=== PATIENT | female | born 1960 | race Caucasian/White ===

== ENCOUNTER → 2016-08-06 | Outpatient (CLI) | payer OTHER ==
--- NOTE | 2016-08-06 15:11 | DI ---
US PELVIC-TRANSVAGINAL, US PELVIC COMPLETE (NON OB),08/06/2016 9:32 AM: Clinical History: Bleeding. Previous Exam: None at this facility. Findings: Multiple grayscale and color Doppler sonographic images are obtained through the pelvis both transabd ominally and endovaginally, and demonstrate a normal-appearing uterus measuring 7.0 x 3.7 x 4.5 cm wi th an endometrial stripe measuring 8 mm. Several nabothian cysts were noted. The right ovary measures 2.0 x 2.0 x 2.5 cm with normal Doppler flow. The left kidney also demonstrates normal flow and measures 2.5 x 2.1 x 3.1 cm. There is no evidence of torsion. There is a trace amount of fluid within the deep pelvis. Impression: Trace amount of fluid within the pelvis otherwise unremarkable.
== END ==
LOC: US 09:29
PROVIDERS: ATTEND Obstetrics & Gynecology
DX: N95.0 Postmenopausal bleeding (principal); Z87.898 Personal history of other specified conditions; F17.210 Nicotine dependence, cigarettes, uncomplicated
CPT/HCPCS: 76830; 76856

== ENCOUNTER → 2016-08-25 | Outpatient (CLI) | payer OTHER ==
[2016-08-25 08:04] LABS: BLOOD UREA NITROGEN 23 mg/dL (7-22); BUN/CREATININE RATIO 32.85 (6-20); CALCIUM 9.1 mg/dL (8.7-10.7); EST GLOMERULAR FILTRATION > 60 (>60 ml/min/1.73m(2))
== END ==
LOC: LAB 07:32
PROVIDERS: ATTEND Obstetrics & Gynecology
DX: I10 Essential (primary) hypertension (principal)
CPT/HCPCS: 36415; 80048

== ENCOUNTER 2016-08-30 06:58 | Day surgery (SDC) | payer OTHER ==
[~2016-08-30 06:58] MED LIST: LIDOCAINE W/ SODIUM BICARB 0.5 ML SYR ONE; Lactated Ringers 1,000 ML PRIMARY IV ONE
[2016-08-30] MEDS ORDERED: MIDAZOLAM 5 MG/1 ML ONE (07:17)
[2016-08-30] MEDS ORDERED: fentaNYL Inj 250 MCG/5 ML VIAL ONE (07:18)
[2016-08-30] MEDS ORDERED: LIDOCAINE MPF 2% - 5 ML (20 MG/1 ML) ONE (07:18)
[2016-08-30 07:36] VITALS: RESP 14; TEMP 98.5
[2016-08-30 07:43] LABS: URINE SPECIFIC GRAVITY - MAN 1.015
[2016-08-30 07:44] LABS: BILIRUBIN,URINE NEGATIVE (NEG); CLARITY,URINE CLEAR (CLEAR); COLOR,URINE YELLOW; GLUCOSE, URINE (UA) NEGATIVE (NEG); NITRATE,URINE NEGATIVE (NEG); OCCULT BLOOD,URINE Trace-intact (NEG); PH,URINE 5.5 (5.0-8.5); PROTEIN,URINE NEGATIVE (NEG); UROBILINOGEN,URINE 0.2 EU/dL (0.2)
[2016-08-30 07:46] LABS: RBC,URINE 0 /hpf; URINE SAMPLE TYPE CLEAN CATCH URINE; WBC,URINE 0
[2016-08-30 07:47] LABS: BACTERIA,URINE FEW; SQUAMOUS EPITHELIAL CELL,UR FEW
[2016-08-30] MEDS ORDERED: ONDANSETRON 4 MG/2 ML VIAL ONE (08:20)
[2016-08-30] MEDS ORDERED: DEXAMETHASONE SOD PHOSPHATE 4 MG/1 ML VIAL ONE (08:20)
[2016-08-30] MEDS ORDERED: KETOROLAC 30 MG/1 ML VIAL ONE (08:20)
[2016-08-30] MEDS ORDERED: KETAMINE 100 MG/1 ML - 5 ML ONE (08:24)
[2016-08-30] MEDS ORDERED: Lactated Ringers 1,000 ML PRIMARY IV ONE (08:31)
--- NOTE | 2016-08-30 09:11 | OB.OP.NOTE ---
Operative Report Surgeon: Wali Anesthesia Type: General (With LMA) Anesthesia Provider: Samuel Romero CRNA Surgery Date: 08/30/16 Preoperative Diagnosis: Postmenopausal bleeding. Endometrial stripe 8 mm. 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 Dilation and curettage. Hysteroscopy with minimal endometrial curettings obtained secondary to atrophy of endometrial lining Estimated Blood Loss (mL): 5 Fluids: 1500 mL of IV fluids. hysteroscopic fluid-750 mL. 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 No evidence of endometrial polyps. Ostia could not be visualized well secondary to atrophy of endometrial lining Minimal tissue with curettage. I did not dilate the cervix above a Mikhail dilator 26 secondary to the cervical stenosis and the difficulty in dilating the cervix. The curet used was the small serrated curet since the other curettes could not pass through the cervix secondary to the cervical stenosis Again, no evidence of uterine perforation Indications for the Procedure: The patient is a 55-year-old G0. The patient has postmenopausal bleeding times one. Endometrial stripe was 8 mm on pelvic ultrasound. Ovaries were normal. Otherwise uterus was normal appearing. Endometrial biopsy in clinic versus hysteroscopy D&C and operating room was discussed with patient. Secondary to patient's history of postmenopausal and cold knife cone 2, patient denies decided upon hysteroscopy D&C in the operating room. Cytotec 100 g 1 per vagina for 5 evenings prior to surgery will be prescribed. Patient expressed understanding on medication administration. The risks, benefits, alternatives and indication of infection, bleeding, pain, reaction to medications, creating a false tract secondary to the history of cold knife cone 2, inability to obtain a diagnosis, damage to bowel, bladder, nerve, vessel, low risk of hysterectomy low risk of were discussed with the patient in detail. Also, blood clots to the legs or lungs were discussed with the patient. Consent form was signed. Patient will need to initial consent form the day of surgery since I added blood clots to the legs or lungs. SCDs will be used. Description of Procedure: The patient was brought to the operating room after the risks, benefits, alternatives and indication of a hysteroscopy D&C were discussed with the patient. Consent form had been previously signed. The patient signed her initials to the consent form today. Electrolytes had been completed last week for a basic metabolic panel and these appear normal. A urine hCG was negative. A bimanual exam was completed and the cervix was almost flush with the vagina but not completely flush. The cervix could be palpated. The uterus was small and mobile about 6 weeks' size. The patient was prepped and draped sterilely in the usual fashion in yellow fin stirrups in the dorsal lithotomy position. The bladder was emptied with a straight catheter in the usual sterile fashion. A timeout was completed for patient and procedure and both were identified correctly. The procedure was begun. A weighted speculum was placed in the patient's posterior vagina and a Logan retractor was placed anteriorly and the cervix was visualized. The cervix was not flush with the vagina but almost flush with the vagina secondary to the history of cold like cone 2. The cervical os was identified. A single-tooth tenaculum was placed on the anterior lip of the cervix. A [employer] dilator #11 was used to start dilating the patient's cervix. I worked my way up to a Mikhail dilator 26. No evidence of false tracts created with the dilators. An endometrial sound was used and the uterus was sounded to 7 cm. A hysteroscope was then used. The endometrium appeared atrophic. There were no polyps visualized. There were no masses visualized. There were no submucosal fibroids visualized. The ostia from the fallopian tubes at the cornea were not well visualized secondary to the atrophy. A small serrated curet was used to curette the endometrial lining in all 4 quadrants multiple times. A good crigh was obtained in all 4 quadrants. 2 different Telfa pads were used to try to collect tissue but minimal tissue if any tissue was obtained secondary to the atrophic lining of the endometrium. There was no evidence of uterine perforation with curetting of the endometrium. I did place a hysteroscope again and there was minimal bleeding from the curettage. No masses were visualized. The hysteroscopy D&C was completed. The tenaculum was removed from the anterior lip of the cervix and there was good hemostasis. The weighted speculum was removed as there was minimal bleeding from the cervical os. The patient was awakened from her general anesthesia with LMA removed. The patient was brought to the PACU in stable condition. Plan: The patient will be observed in the PACU and then hopefully be able to go home. Pathology is pending. Most likely there is minimal if no tissue and endometrial atrophy would be the diagnosis for the postmenopausal bleeding.
[2016-08-30] MEDS ORDERED: HYDROcodone-APAP 5 MG -325 MG TABLET PO PRN (09:21)
[2016-08-30] MEDS ORDERED: NORMAL SALINE 10 ML SYRINGE FLUSH IVP PRN (09:21)
[2016-08-30] MEDS ORDERED: ONDANSETRON 4 MG/2 ML VIAL IVP PRN (09:21)
== END 2016-08-30 10:12 | disposition home or self-care (01) ==
LOC: SDSC 06:58
PROVIDERS: ATTEND Obstetrics & Gynecology
DX: N95.0 Postmenopausal bleeding (principal)
CPT/HCPCS: 58558; 81001; 84703; J1885; J2704; J3010; J1100; J2001; J2250; J2405; J7120

== ENCOUNTER 2016-12-15 07:56 | Day surgery (SDC) | payer OTHER ==
[~2016-12-15 07:56] MED LIST changes: +MIDAZOLAM 5 MG/1 ML ONE; +fentaNYL Inj 100 MCG/2 ML VIAL ONE
[2016-12-15] MEDS ORDERED: Lactated Ringers 1,000 ML PRIMARY IV ONE (08:37)
[2016-12-15 08:43] VITALS: TEMP 97.5
--- NOTE | 2016-12-15 08:56 | GEN.OPNOTE ---
Colonoscopy Procedure Note Surgery Date: 12/15/16 Preoperative Diagnosis: Colon cancer screening Postoperative Diagnosis: Colon cancer screening. Single diverticulum seen at the junction of the sigmoid colon and rectum Procedure: Colonoscopy Surgeon: Tal Leblanc MD Anesthesia Provider: Anton Beard CRNA Anesthesia Type: MAC Indications: Colon cancer surveillance Findings: Prep : Excellent Cecum : Scope was advanced all way cecum. Ileocecal valve identified and cannulated. Patient normal terminal ileum. Patient cecum had no pathology identified Ascending : Ascending colon free from disease Transverse : Transverse colon had no polyps tumors or cancers Sigmoid : Descending colon free from disease patient has solitary sigmoid diverticulum right at the junction of the sigmoid and the rectum Rectum : Rectum free from disease Digital Rectal Exam : A lubricated flexible colonoscope was inserted and passed to the blind end of the cecum.
[2016-12-15 09:27] VITALS: RESP 15
== END 2016-12-15 09:18 | disposition home or self-care (01) ==
LOC: SDSC 07:56
PROVIDERS: ATTEND Surgery
DX: Z12.11 Encounter for screening for malignant neoplasm of colon (principal); K57.30 Diverticulosis of large intestine without perforation or abscess without bleeding
CPT/HCPCS: 45378; J2250; J2704; J3010; J7120